=== PATIENT | female | born 1980 | race Caucasian/White ===

== ENCOUNTER 2017-11-29 12:19 | Emergency (ER) | payer BC ==
[2017-11-29 14:00] VITALS: BP 134/87
--- NOTE | 2017-11-29 14:32 | UC ---
Respiratory Complaint HPI - HPI Summary HPI Summary: 37 yo female has not felt well for 2 weeks nasal congestion facial pressure post nasal drip myalgias chills no fever fatigue no cough no cp no sob has been exposse to strep has had a sore throat x 4 -5 days - History of Current Complaint Chief Complaint: UCRespiratory Stated Complaint: ST, PEREZ Time Seen by Provider: 11/29/17 14:25 Hx Obtained From: Patient Hx Last Menstrual Period: 11/21/17 Onset/Duration: Gradual Onset, Lasting Weeks Timing: Constant Severity Initially: Mild Severity Currently: Mild Pain Intensity: 4 Pain Scale Used: 0-10 Numeric Associated Signs And Symptoms: Positive: Chills, Nasal Congestion, Sinus Discomfort - Allergies/Home Medications Allergies/Adverse Reactions: Allergies Allergy/AdvReac Type Severity Reaction Status Date / Time moxifloxacin Allergy Difficulty Verified 11/29/17 13:51 Breathing Penicillins Allergy Unknown Verified 11/29/17 13:51 Reaction Details Home Medications: Home Medications Bisoprolol TAB* [Zebeta TAB*] 2.5 mg PO DAILY 11/29/17 [History Confirmed ] Cromolyn Sodium [Nasal Allergy [place]] 13 ml NS PRN 11/29/17 [History] PMH/Surg Hx/FS Hx/Imm Hx Previously Healthy: Yes Respiratory History: Asthma - Surgical History Surgical History: Yes Surgery Procedure, Year, and Place: FINGER SURGERY - Family History Known Family History: Positive: Hypertension, Diabetes, Respiratory Disease - Social History Alcohol Use: None Substance Use Type: None Smoking Status (MU): Never Smoked Tobacco - Immunization History Most Recent Influenza Vaccination: Not the 2016/2016 Season Most Recent Tetanus Shot: "I have no idea." Review of Systems Constitutional: Chills, Fatigue ENT: Sore Throat, Ear Ache, Nasal Discharge, Sinus Congestion, Sinus Pain/ Tenderness Musculoskeletal: Myalgia Neurological: Headache Is Patient Immunocompromised?: No All Other Systems Reviewed And Are Negative: Yes Physical Exam Triage Information Reviewed: Yes Appearance: Well-Appearing, No Pain Distress, Well-Nourished Vital Signs: Initial Vital Signs Temp 98.1 F 11/29/17 13:53 Pulse 73 11/29/17 13:53 Resp 20 11/29/17 13:53 BP 134/87 11/29/17 13:53 Pulse Ox 97 11/29/17 13:53 Vital Signs Reviewed: Yes Eyes: Positive: Conjunctiva Clear ENT: Positive: Pharyngeal erythema, Nasal congestion, TMs normal, Sinus tenderness, Uvula midline. Negative: Tonsillar swelling, Tonsillar exudate, Trismus, Muffled voice, Dental tenderness Dental Exam: Normal Neck: Positive: Supple, Nontender, No Lymphadenopathy Respiratory: Positive: Lungs clear, Normal breath sounds, No respiratory distress, No accessory muscle use Cardiovascular: Positive: RRR, No Murmur Musculoskeletal: Positive: ROM Intact, No Edema Neurological: Positive: Alert Psychological Exam: Normal Skin Exam: Normal UC Diagnostic Evaluation - Laboratory O2 Sat by Pulse Oximetry: 97 - normal/not hypoxic Respiratory Course/Dx - Differential Dx/Diagnosis Provider Diagnoses: acute sinusitis Discharge - Discharge Plan Condition: Stable Disposition: HOME Prescriptions: ceFUROXime TAB(*) [Ceftin TAB(*)] 250 mg PO BID #[id number] tab Patient Education Materials: Sinusitis (ED) Referrals: Rosario Aguilar MD [Primary Care Provider] - 5 Days (recheck early next week if not better)
== END 2017-11-29 14:52 | disposition home or self-care (01) ==
LOC: UCCORT 12:19
DX: J01.90 Acute sinusitis, unspecified (principal); Z20.89 Contact with and (suspected) exposure to other communicable diseases
CPT/HCPCS: 99212; G0463